=== PATIENT | female | born 1975 | race Caucasian/White ===

== ENCOUNTER 2018-10-05 08:15 | Outpatient (RCR) | payer OTHER, SELFPAY ==
--- NOTE | 2018-10-05 09:14 | PT.OTN ---
Current Diagnoses Pain in left shoulder (10/05/18) Physical Therapy Treatment Note PT-OP-A Visit Information Start: 09/01/18 12:16 Freq: Status: Active Protocol: Document 10/05/18 09:02 EA (Rec: 10/05/18 09:12 EA [id number]) Out-Patient Physical Therapy Visit Information Visit Information Visit Type Treatment Note Visit Start Time 08:15 Visit Stop Time 09:03 Total Visit Minutes 48 Visit Number 2 PT-OP-B Current Condition Start: 09/01/18 12:16 Freq: Status: Active Protocol: Document 09/01/18 17:35 EA (Rec: 09/15/18 07:28 EA [id number]) Current Condition History of Current Condition Onset Date a year ago Current Complaints Left shoulder pain with overhead movement and extreme shoulder rotation History of Current Condition Pt reports gradual onset of left shoulder pain with unrecalled potential injury. She reports she does different Yoga positioning exercises but she noticed last month was difficult to perform certain position due to pain. 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 She reports that it has been a year since initially encountered the pain; states last months the pain at night made her unable to sleep. She denies diagnostic imaging in the past. Prior Treatments and Tests None reported Future Testing and Treatments Planned None reported Treatment Goals Patient/Caregiver Goals Patient would like to eliminate pain. Patient would like to learn exercises that could prevent disease progression. Prior Functional Status Baseline Function- ADL's Independent Baseline Function- Mobility Independent Baseline Function- Recreation/Hobbies None limitation to Hiking, Yoga exercises Current Functional Impairments (Reported) Functional Limitations- ADL's Independent with limitation to overhead activities. 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 She requested to be discharged today and would liketo cont. HEP and pain management due to high co-pay Patient Reported Progress Improving Patient Questionnaires Quick Dash- Work and Sports Modules Quick Dash W&S Score 9 Quick Dash Work and Sport Impairment 1 to 19% Impaired (Score 1-19) PT-OP-F Manual Assessment Start: 09/01/18 12:16 Freq: Status: Active Protocol: Document 09/01/18 17:35 EA (Rec: 09/15/18 07:28 EA [id number]) Manual Assessments Soft Tissue Assessment Soft Tissue Mobility Assessment Tight left shoulder external rotation Joint Mobility Assessment Joint Mobility Assessment Normal joint mobility to GH PT-OP-J Posture/Palpation/Skin Start: 09/01/18 12:16 Freq: Status: Active Protocol: Document 09/01/18 17:35 EA (Rec: 09/15/18 07:28 EA [id number]) Posture Evaluation Comments Posture Comments Slight forward head with rounded shoulders Palpation Assessment Location One Palpation Location Anterior left shoulder Palpation Findings Tenderness PT-OP-K Range of Motion Start: 09/01/18 12:16 Freq: Status: Active Protocol: Document 09/01/18 17:35 EA (Rec: 09/15/18 07:24 EA [id number]) Shoulder Goniometric Range of Motion Shoulder Right Active Shoulder ROM WFL Yes Testing Position Sitting Left Active Testing Position Sitting Flexion 180 Extension 65 Abduction 180 External Rotation at 90 degrees 80 Abduction Internal Rotation 50 Shoulder ROM Limitations Shoulder ROM Limitations Pain PT-OP-L Special Tests Start: 09/01/18 12:16 Freq: Status: Active Protocol: Document 09/01/18 17:30 EA (Rec: 09/02/18 07:19 EA [id number]) Special Tests Shoulder Special Tests Rolanrelizabetson's Biceps Test Results - Empty Can Test Results Sensitive Elevation Impingement Test Results + Lift-Off Rotator Cuff Test Results + Mart Tejas Impingement Test Results + PT-OP-M Strength Start: 09/01/18 12:16 Freq: Status: Active Protocol: Document 09/01/18 17:30 EA (Rec: 09/02/18 07:21 EA [id number]) Shoulder Strength Shoulder Manual Muscle Testing Right Flexion 5 Normal Extension 5 Normal Abduction (C5) 5 Normal Adduction 5 Normal External Rotation 5 Normal Internal Rotation 5 Normal Horizontal Abduction 5 Normal Horizontal Adduction 5 Normal Left Flexion 4+ Good+ Extension 5 Normal Abduction (C5) 4+ Good+ Adduction 5 Normal External Rotation 4 Good Internal Rotation 4- Good- Horizontal Abduction 4 Good Horizontal Adduction 4 Good Comments Pain to shoulder IR PT-OP-Q Treatments Start: 09/01/18 12:16 Freq: Status: Active Protocol: Document 10/05/18 09:02 EA (Rec: 10/05/18 09:12 EA [id number]) Manual Therapy Treatment Soft Tissue Mobilization 1 Body Location TM and LD insertional tendon Mobilization Type Cross-Friction Myofascial Release Rolling Intensity/Depth Moderate Body Position Sidelying Self-Care/Home Management Treatment Education Patient Education Home Exercise Program Joint Protection Pain Management Other Education Educated with prevention, strengthening, and new HEP. Patient understand all HEP and pain management to perform at home. PT-OP-R Modalities Start: 09/01/18 12:16 Freq: Status: Active Protocol: Document 10/05/18 09:02 EA (Rec: 10/05/18 09:12 EA [id number]) Electric Stimulation Electric Stimulation Interferential Current (IFC) Body Location left posterior shoulder Intensity 12 Combined With Heat/Cold Cold Pack PT-OP-T Assessment and Plan Start: 09/01/18 12:16 Freq: Status: Active Protocol: Document 10/05/18 09:02 EA (Rec: 10/05/18 09:12 EA [id number]) Physical Therapy Assessment Assessment Summary Assessment Patient is discharge today upon request. Patient is improved from the time of initial visit. Physical Therapy Plan Discharge Physical Therapy Discharge Reasons Patient Request Discharge Comments high co-pay Next Visit Focus/Plan Next Note Type Discharge Summary
== END 2018-10-08 09:07 | disposition home or self-care (01) ==
LOC: PHYS 08:15
PROVIDERS: PCP Family Medicine; Visit Provider Family Medicine
DX: M25.512 Pain in left shoulder (principal)
CPT/HCPCS: 97014; 97110; 97140; 97161; 97535; G0283

== ENCOUNTER → 2018-10-05 09:20 | Outpatient (CLI) | payer OTHER, SELFPAY ==
[2018-10-05 10:42] LABS: Cholesterol 138 mg/dL (140-199); Glucose 82 mg/dL (70-100); HDL Cholesterol 62 mg/dL (40-60); LDL Cholesterol Calculated 68 mg/dL (<100); Triglycerides 38 mg/dL (35-150)
== END ==
PROVIDERS: PCP Family Medicine; Visit Provider Family Medicine
DX: Z13.220 Encounter for screening for lipoid disorders (principal); Z13.1 Encounter for screening for diabetes mellitus
CPT/HCPCS: 36415; 80061; 82947

== ENCOUNTER → 2019-03-01 15:41 | Outpatient (CLI) | payer OTHER, SELFPAY | PROVIDERS: PCP Family Medicine; Visit Provider Physician Assistant | DX: R30.0 Dysuria (principal) | CPT/HCPCS: 87086 ==

== ENCOUNTER → 2021-10-22 11:06 | Outpatient (CLI) | payer OTHER, SELFPAY ==
[2021-10-22 17:41] LABS: Campylobacter Not Detected (Not Detect); Clostridium difficile toxin AB Not Detected (Not Detect); Plesiomonsa shigelloides Not Detected (Not Detect); Salmonella Not Detected (Not Detect); Vibrio Not Detected (Not Detect); Vibrio cholerae Not Detected (Not Detect); Yersinia enterocolitica Not Detected (Not Detect)
[2021-10-22 17:42] LABS: Adenovirus F 40/41 Not Detected (Not Detect); Astrovirus Not Detected (Not Detect); Cryptosporidium Not Detected (Not Detect); Cyclospora cayetanensis Not Detected (Not Detect); Entamoeba histolytica Not Detected (Not Detect); Enteroaggregative E.coli Not Detected (Not Detect); Enteropathogenic E.coli Detected (Not Detect); Enterotoxigenic E.coli It/st Not Detected (Not Detect); Giardia lamblia Not Detected (Not Detect); Norovirus GI/GII Not Detected (Not Detect); Rotavirus A Not Detected (Not Detect); Sapovirus Not Detected (Not Detect); Shiga-like toxin-prod E.coli Not Detected (Not Detect); Shigella/Enteroinvasive E.coli Not Detected (Not Detect)
== END ==
PROVIDERS: PCP Family Medicine; Referring Provider Family Medicine; Visit Provider Family Medicine
DX: R19.7 Diarrhea, unspecified (principal)
CPT/HCPCS: 87507

== ENCOUNTER → 2022-12-26 13:01 | Outpatient (CLI) | payer OTHER, SELFPAY ==
[2022-12-26 14:02] LABS: Add Manual Diff / Slide Review NO; Basophils Absolute Auto 0 /uL (0-100); Basophils Percent Auto 0.5 % (0-2); Eosinophils Absolute Auto 100 /uL (0-450); Eosinophils Percent Auto 2.1 % (2-4); Lymphocytes Absolute Auto 1500 /uL (1100-4500); Lymphocytes Percent Auto 23.7 % (25-40); Mean Corpuscular HGB Conc 34.1 % (30-36); Mean Corpuscular Hemoglobin 32.8 PG (26-34); Mean Corpuscular Volume 96.3 fL (80-100); Monocytes Absolute Auto 300 /uL (0-900); Monocytes Percent Auto 5.4 % (3-14); Neutrophils Absolute Auto 4300 /uL (1500-7000); Neutrophils Percent Auto 68.3 % (50-75); Platelet Count 223 X10^3/uL (150-400); Red Blood Cell Count 3.95 X10^6/uL (4.0-5.2); Red Cell Distribution Width 12.9 % (11.6-14.8); White Blood Cell Count 6.3 X10^3/uL (4.5-11.0)
[2022-12-26 14:18] LABS: Alanine Aminotransferase 12 IU/L (<35); Albumin 4.3 g/dL (3.5-5.0); Albumin Globulin Ratio 1.5 (1.0-2.8); Alkaline Phosphatase 37 U/L (38-126); Aspartate Aminotransferase 16 IU/L (14-36); Bilirubin Total 1.1 mg/dL (0.2-1.3); Blood Urea Nitrogen 13 mg/dL (7-17); Calcium 9.3 mg/dL (8.4-10.2); Carbon Dioxide 27 mmol/L (22-32); Chloride 101 mmol/L (98-107); Estimated Glomerular Filt Rate > 60 mL/min (>60); Globulin 2.8 g/dL (1.7-4.1); Glucose 86 mg/dL (70-100); HEMOLYSIS < 15 (0-50); Sodium 135 mmol/L (137-145); Total Protein 7.1 g/dL (6.3-8.2); Uric Acid 2.7 mg/dL (2.5-6.2)
[2022-12-26 14:22] LABS: High Sensitivity CRP - Cardiac < 0.3 mg/L (1.0-3.0); Rheumatoid Factor < 8.6 IU/mL (<12.0)
[2022-12-26 14:44] LABS: Erythrocyte Sedimentation Rate 3 MM/HR (0-20)
[2022-12-26 14:48] LABS: Thyroid Stimulating Hormone 1.53 uIU/mL (0.47-4.68)
[2022-12-27 17:28] LABS: SS A Ro Sjogrens Antibody < 0.2 AI (0.0-0.9); SS B La Sjogrens Antibody < 0.2 AI (0.0-0.9)
[2022-12-31 16:50] LABS: ANA Screen, IFA Negative (.)
== END ==
PROVIDERS: PCP Family Medicine; Referring Provider Ophthalmology; Visit Provider Ophthalmology
DX: H44.132 Sympathetic uveitis, left eye (principal)
CPT/HCPCS: 36415; 80053; 84443; 84550; 85025; 85651; 86038; 86140; 86235; 86430

== ENCOUNTER → 2023-03-03 15:50 | Outpatient (CLI) | payer OTHER, SELFPAY | PROVIDERS: PCP Family Medicine; Visit Provider Nurse Practitioner Family | DX: J02.9 Acute pharyngitis, unspecified (principal) | CPT/HCPCS: 87070 ==

== ENCOUNTER 2023-09-28 19:45 | Emergency (ER) | payer OTHER, SELFPAY ==
[2023-09-28 19:51] VITALS: BP 111/68; PULSE 62; RESP 16; TEMP 37.3; O2SAT 100; BMI 23.6
--- NOTE | 2023-09-28 19:58 | DI.RAD.S_ITS ---
PROCEDURE: XR HAND LT MIN 3V INDICATIONS: cut left pointer finger with sharp knife; through nail bed TECHNIQUE: 3 views of the hand(s) acquired. COMPARISON: None. FINDINGS: Bones: No fractures or dislocations. Carpal bones are normally aligned. No suspicious bony lesions. Soft tissues: No suspicious soft tissue calcifications. IMPRESSION: No acute bony abnormality. No radiopaque foreign bodies. Dictated by: Terry Roman M.D. on 09/28/2023 at 20:10 Approved by: Terry Roman M.D. on 09/28/2023 at 20:10
--- NOTE | 2023-09-28 22:56 | ED.GENADULT ---
HPI - General Adult General Chief complaint: Extremity Injury, Upper Stated complaint: Finger laceration Time Seen by Provider: 09/28/23 22:56 Source: patient and family Mode of arrival: Ambulatory History of Present Illness HPI narrative: 47-year-old woman with no significant history who was cutting vegetables for dinner tonight and sliced off the pad of her left index finger. Distal portion of the nail is involved with the nail bed is not. Bleeding has been controlled. She is up-to-date on tetanus. Related Data Home Medications Medication Instructions Recorded Confirmed levonorgestrel 21 mcg/24 hours (8 52,000 mcg intrauterine QDAY ##0 06/08/20 07/21/23 yrs) 52 mg intrauterine device (Mirena) hydroxyzine HCl 25 mg tablet 25 mg PO BEDTIME 12/25/22 07/21/23 sertraline 50 mg tablet mg PO Mild anxiety 07/21/23 07/21/23 Allergies Allergy/AdvReac Type Severity Reaction Status Date / Time ERYTHROMYCIN Allergy Mild HIVES Uncoded 07/21/23 08:29 Patient History Medical History (Updated 09/28/23 @ 23:19 by Bianca Grayson MD) Plantar warts (~2014) Acne (~1991) Chicken pox (~1981) Human papilloma virus (~2006) Genital warts (~2006) Abnormal Pap smear of cervix (~2006) Family History (Updated 02/03/19 @ 19:49 by Kamilla Haney) Father Age: 76 Hyperlipidemia Cancer Grandmother Cancer Grandfather Cancer Mother Pulmonary embolism Social History marital status: unmarried,living together number of children: 0 lives independently: Yes caregiver/support person: No housing: house education level: college occupational status: employed Smoking Status: Former smoker second hand exposure: No alcohol intake: current substance use type: does not use Smoking Status: Former smoker alcohol intake frequency: 0-2 drinks per day Substance Use Type: does not use Exam Initial Vital Signs Initial Vital Signs: Vital Signs Temperature 99.2 F 09/28/23 19:51 Pulse Rate 62 09/28/23 19:51 Respiratory Rate 16 09/28/23 19:51 Blood Pressure 111/68 09/28/23 19:51 Pulse Oximetry 100 09/28/23 19:51 Oxygen Delivery Method Room Air 09/28/23 19:51 General: Alert appropriate in no acute distress Respiratory: Able to speak in full sentences, no obvious respiratory distress Skin: No obvious rashes, warm and dry Neurologic: Grossly intact no obvious asymmetries or abnormalities Psych: appropriate insight and affect, cooperative Extremity: The lateral pad of her left index finger has a large flap like laceration from a kitchen knife. The flap over the area that is sutured for hemostasis Course Orders Ordered: ED Orders 09/28/23 19:58 XR hand LT min 3V Stat Vital Signs Vital signs: Vital Signs - 8 hr 09/28/23 19:51 Temperature 99.2 F Pulse Rate 62 Respiratory Rate 16 Blood Pressure 111/68 Pulse Oximetry 100 Oxygen Delivery Method Room Air Medical Decision Making MDM Narrative Medical decision making narrative: CC: Left index finger laceration Data collected from: patient Differential considered: Superficial laceration, bony involvement, nail bed involvement Exam documented above, pertinent findings include: Flap like laceration involving the pad of the finger distal portion of the nail, nail bed is uninvolved. No bony involvement X-ray of the finger does not show any bony involvement Procedure/Treatments: Laceration repair 2 cc of lidocaine without epi is injected into the tip of the finger. There is cleaned with saline. Wound is explored through to the base. The wound itself is fairly clean. The flap size is 1 cm in diameter. Two interrupted sutures were placed, 4. 0 nylon suture used Patient tolerated the procedure well. Bacitracin and bandage applied Discussion: Flap like laceration to the tip of the left index finger. Two sutures placed patient tolerated well. She is up-to-date on tetanus. Reviewed signs and symptoms of infections reasons to return. Recommended sutures are out on or about October 04. She is safe for Discharge Plan Departure Patient Disposition: Home Clinical Impression: Finger laceration Qualifiers: Encounter type: initial encounter Finger: index finger Damage to nail status: without damage Foreign body presence: without foreign body Laterality: left Qualified Code(s): S61.211A - Laceration without foreign body of left index finger without damage to nail, initial encounter Instructions: DI for Laceration Repair -- Finger Activity Restrictions/Additional Instructions: Thank you for coming in today I think this wound will heal much better with sutures. Two single stitches were placed without complication. These will need to be removed on or about October 04. Keep the wound covered, bacitracin to the wound for the 1st couple of days and then a dry Band-Aid we will be adequate after that. If you notice increasing redness drainage or pain please return to the ER Prescriptions: No Action Mirena 20 mcg/24 hours (6 yrs) 52 mg intrauterine device 52,000 mcg intrauterine QDAY Qty: 0 Rx Instructions: Due out July 2021 hydroxyzine HCl 25 mg tablet 25 mg PO BEDTIME sertraline 50 mg tablet PO Patient Comments: online company prescribed it: [employer] Referrals: Deborah Roberts MD [Primary Care Provider] - Stand Alone Forms: Patient Portal/API
[2023-09-28] MEDS: BACITRACIN OINT 0.9 GM PCKT 1 APPLIC TOP (23:08)
== END 2023-09-28 23:30 | disposition home or self-care (01) ==
PROVIDERS: Emergency Provider Emergency Medicine; PCP Student in an Organized Health Care Education/Training Program
DX: S61.211A Laceration without foreign body of left index finger without damage to nail, initial encounter (principal); W26.0XXA Contact with knife, initial encounter
CPT/HCPCS: 12001; 73130; 99283

== ENCOUNTER → 2023-10-09 07:47 | Outpatient (CLI) | payer OTHER, SELFPAY ==
--- NOTE | 2023-10-09 07:48 | DI.MG.S_ITS ---
BILATERAL DIGITAL SCREENING MAMMOGRAM 3D/2D WITH CAD: 10/09/2023 CLINICAL: Routine screening. Baseline exam. No prior exams were available for comparison. Both breasts are heterogeneously dense, which may obscure small masses (category c / 51-75% glandular tissue). Current study was also evaluated with a Computer Aided Detection (CAD) system. There are grouped fine punctate calcifications in the left breast at 4 o'clock middle depth. No other significant masses, calcifications, or other findings are seen in either breast. IMPRESSION: INCOMPLETE: NEEDS ADDITIONAL IMAGING EVALUATION The grouped fine punctate calcifications in the left breast are indeterminate. Additional views with possible ultrasound are recommended. Based on the Tyrer Cuzick model (a risk assessment model) the patient's lifetime risk is 13.6% and her 10 year risk is 2.8%. According to the ACR, ACS, and NCCN guidelines, an annual breast MRI exam along with mammogram is recommended if the patient's lifetime risk is 20% or greater. This exam was interpreted at Station ID: [id number]. NOTE: For mammograms, a report in lay terms will be sent to the patient. Approximately 15% of breast malignancies will not be visualized mammographically. In the management of a palpable breast mass, a negative mammogram must not discourage biopsy of a clinically suspicious lesion. Electronically Signed By: Maria Isabel valdez/geraldnie:10/09/2023 10:23:44 letter sent: Additional Imaging Needed ACR BI-RADS Category 0: Incomplete 3340F
== END ==
PROVIDERS: PCP Student in an Organized Health Care Education/Training Program; Referring Provider Student in an Organized Health Care Education/Training Program; Visit Provider Student in an Organized Health Care Education/Training Program
DX: Z12.31 Encounter for screening mammogram for malignant neoplasm of breast (principal); R92.333 Mammographic heterogeneous density, bilateral breasts; R92.1 Mammographic calcification found on diagnostic imaging of breast
CPT/HCPCS: 77063; 77067

== ENCOUNTER → 2023-11-13 09:31 | Outpatient (CLI) | payer OTHER, SELFPAY ==
--- NOTE | 2023-11-13 09:32 | DI.MG.S_ITS ---
UNILATERAL LEFT DIGITAL DIAGNOSTIC MAMMOGRAM 3D/2D WITH ADDITIONAL VIEWS: 11/13/2023 CLINICAL: Additional evaluation requested from prior study. Comparison is made to exam dated: 10/09/2023 mammogram - [facility]. The breasts are heterogeneously dense, which may obscure small masses (category c / 51-75% glandular tissue). There are grouped punctate round calcifications in the left breast at 4 o'clock middle depth. These are seen in additional views. No other significant masses or calcifications are seen in the breast. IMPRESSION: PROBABLY BENIGN The grouped punctate round calcifications in the left breast are probably benign. A follow-up left mammogram in 6 months is recommended to demonstrate stability. Findings and recommendations were conveyed to the patient during today's evaluation. Based on the Tyrer Cuzick model (a risk assessment model) the patient's lifetime risk is 13.8% and her 10 year risk is 3.0%. According to the ACR, ACS, and NCCN guidelines, an annual breast MRI exam along with mammogram is recommended if the patient's lifetime risk is 20% or greater. This exam was interpreted at Station ID: [id number]. NOTE: For mammograms, a report in lay terms will be sent to the patient. Approximately 15% of breast malignancies will not be visualized mammographically. In the management of a palpable breast mass, a negative mammogram must not discourage biopsy of a clinically suspicious lesion. Electronically Signed By: Andrés Johnson M.D. aty/:11/13/2023 10:13:24 letter sent: Followup Recommended ACR BI-RADS Category 3: Probably Benign
== END ==
PROVIDERS: PCP Student in an Organized Health Care Education/Training Program; Referring Provider Student in an Organized Health Care Education/Training Program; Visit Provider Student in an Organized Health Care Education/Training Program
DX: R92.8 Other abnormal and inconclusive findings on diagnostic imaging of breast (principal); R92.1 Mammographic calcification found on diagnostic imaging of breast
CPT/HCPCS: 77065; G0279

== ENCOUNTER → 2023-11-20 07:05 | Outpatient (CLI) | payer OTHER, SELFPAY ==
[2023-11-20 08:00] LABS: Add Manual Diff / Slide Review NO; Basophils Absolute Auto 0 /uL (0-100); Basophils Percent Auto 0.4 % (0-2); Eosinophils Absolute Auto 200 /uL (0-450); Eosinophils Percent Auto 3.5 % (2-4); Hematocrit 38.2 % (36-46); Hemoglobin 13.1 g/dL (12.0-16.0); Lymphocytes Absolute Auto 700 /uL (1100-4500); Lymphocytes Percent Auto 11.8 % (25-40); Mean Corpuscular HGB Conc 34.3 % (30-36); Mean Corpuscular Hemoglobin 33.1 PG (26-34); Mean Corpuscular Volume 96.5 fL (80-100); Monocytes Absolute Auto 400 /uL (0-900); Monocytes Percent Auto 6.3 % (3-14); Neutrophils Absolute Auto 4900 /uL (1500-7000); Platelet Count 215 X10^3/uL (150-400); Red Blood Cell Count 3.95 X10^6/uL (4.0-5.2); Red Cell Distribution Width 12.7 % (11.6-14.8); White Blood Cell Count 6.3 X10^3/uL (4.5-11.0)
[2023-11-20 08:45] LABS: Alanine Aminotransferase 11 IU/L (<35); Albumin 3.9 g/dL (3.5-5.0); Albumin Globulin Ratio 1.5 (1.0-2.8); Alkaline Phosphatase 35 U/L (38-126); Aspartate Aminotransferase 24 IU/L (14-36); BUN Creatinine Ratio 22.1 (6-22); Bilirubin Total 1.5 mg/dL (0.2-1.3); Blood Urea Nitrogen 15 mg/dL (7-17); Calcium 9.1 mg/dL (8.4-10.2); Carbon Dioxide 26 mmol/L (22-32); Chloride 103 mmol/L (98-107); Cholesterol 148 mg/dL (140-199); Estimated Glomerular Filt Rate > 60 mL/min (>60); Globulin 2.6 g/dL (1.7-4.1); Glucose 81 mg/dL (70-100); HDL Cholesterol 66 mg/dL (40-60); HEMOLYSIS < 15 (0-50); LDL Cholesterol Calculated 73 mg/dL (<100); Potassium 4.6 mmol/L (3.4-5.1); Sodium 133 mmol/L (137-145); Total Protein 6.5 g/dL (6.3-8.2); Triglycerides 45 mg/dL (35-150)
== END ==
PROVIDERS: PCP Student in an Organized Health Care Education/Training Program; Referring Provider Student in an Organized Health Care Education/Training Program; Visit Provider Student in an Organized Health Care Education/Training Program
DX: Z13.228 Encounter for screening for other metabolic disorders (principal); R53.83 Other fatigue; Z13.220 Encounter for screening for lipoid disorders
CPT/HCPCS: 36415; 80053; 80061; 85025

== ENCOUNTER 2023-12-31 12:00 | Day surgery (SDC) | payer OTHER, SELFPAY ==
[2023-12-31 12:21] VITALS: BP 118/77; PULSE 101; RESP 16; TEMP 36.4; O2SAT 98
--- NOTE | 2023-12-31 12:36 | P.HP_ITS ---
History of Present Illness History of Present Illness Date Patient Seen: 12/31/23 Time Patient Seen: 12:36 Chief complaint: Screening Colonoscopy Narrative: Cortez is a 48-year-old woman who is here for a colonoscopy, her first. Her grandmother had colon cancer at a young age. [facility] Medical History (Updated 12/31/23 @ 12:37 by King Fontana MD) Plantar warts (~2014) Acne (~1991) Chicken pox (~1981) Human papilloma virus (~2006) Genital warts (~2006) Abnormal Pap smear of cervix (~2006) Family History (Updated 02/03/19 @ 19:49 by Kamilla Haney) Father Age: 76 Hyperlipidemia Cancer Grandmother Cancer Grandfather Cancer Mother Pulmonary embolism Social History marital status: unmarried,living together number of children: 0 lives independently: Yes caregiver/support person: No housing: house education level: college occupational status: employed Smoking Status: Former smoker second hand exposure: No alcohol intake: current substance use type: does not use Meds Home Medications and Allergies Home Medications Medication Instructions Recorded Confirmed Type levonorgestrel 21 mcg/24 hr (up to 52,000 mcg intrauterine QDAY ##0 06/08/20 07/21/23 History 8 years) 52 mg intrauterine device (Mirena) hydroxyzine HCl 25 mg tablet 25 mg PO BEDTIME 12/25/22 12/31/23 History venlafaxine 37.5 mg 37.5 mg PO DAILY #30 caps 10/09/23 12/31/23 Rx capsule,extended release 24 hr peg 3350-electrolytes 236 240 ml PO Q10M #4,000 mL 11/19/23 Rx gram-22.74 gram-6.74 gram-5.86 gram solution (Golytely) Allergies Allergy/AdvReac Type Severity Reaction Status Date / Time ERYTHROMYCIN Allergy Mild HIVES Uncoded 12/31/23 12:19 Exam Vital Signs (past 8 hours): - 12/31/23 12:21 Temperature 97.6 F Pulse Rate 101 H Respiratory Rate 16 Blood Pressure 118/77 Pulse Oximetry 98 Oxygen Delivery Method Room Air Oxygen Delivery Method Room Air Const General: healthy appearing Assessment & Plan Assessment and plan (1) Colon cancer screening: Status: Acute Plan Colonoscopy Time-Based Coding :: [TOTAL MINUTES] spent with patient and on the chart (including review of chart, obtaining history, exam, reviewing outside data, placing orders, documenting exam and treatment plan, and counseling patient) on [DATE].
[2023-12-31 13:20] VITALS: BP 90/57; PULSE 82; RESP 14; TEMP 36.2; O2SAT 95
[2023-12-31 13:25] VITALS: BP 93/63; PULSE 109; RESP 14; O2SAT 97
--- NOTE | 2023-12-31 13:25 | PM.OP.COLON ---
Operative Date/Time/Diagnoses Date of procedure: 12/31/23 Time of procedure: 13:25 Pre-op diagnosis: Colon cancer screening Post-op diagnosis: same Procedure & Clinicians Study performed: Colonoscopy Same procedure as scheduled: Yes Surgeon: King Fontana Procedure Notes Procedure in detail: Surgeon: King Fontana MD Anesthesia: Dinorah Sparrow CRNA Procedure: The patient was brought to the endoscopy suite, placed in left lateral decubitus position. The patient was connected to monitoring devices. A time-out was performed. Sedation was administered. Once the patient was adequately sedated, a digital rectal exam was performed and was normal. The scope was then inserted and advanced to the cecum where the appendiceal orifice was identified and photographed. The scope was then slowly withdrawn over greater than 6 minutes. The mucosa was thoroughly inspected. No abnormalities were identified. The scope was retroflexed in the rectum. The scope was straightened and removed. The patient was awakened and brought to recovery. Scope withdrawal time: 8 minutes Sedation time: 19 minutes EBL: 0 Findings: Normal colon Post-procedure Recommendations: Colonoscopy in 10 years Disposition: PACU
[2023-12-31 13:30] VITALS: BP 107/72; PULSE 87; RESP 16; TEMP 36.3; O2SAT 97
[2023-12-31 13:37] VITALS: BP 106/72; PULSE 77; RESP 14; O2SAT 98
== END 2023-12-31 13:52 | disposition home or self-care (01) ==
PROVIDERS: PCP Student in an Organized Health Care Education/Training Program; Referring Provider Surgery; Visit Provider Surgery
PROC: 0DJD8ZZ Inspection of Lower Intestinal Tract, Via Natural or Artificial Opening Endoscopic (ICD-10-PCS; CPT 45378; principal; 2023-12-31 13:15)
DX: Z12.11 Encounter for screening for malignant neoplasm of colon (principal)
CPT/HCPCS: 45378; J2704

== ENCOUNTER → 2024-07-07 11:59 | Outpatient (CLI) | payer OTHER, SELFPAY ==
--- NOTE | 2024-07-07 11:59 | DI.MG.S_ITS ---
MM diagnostic mammo unilat LT: 07/07/2024. BI-RADS: 3 CLINICAL: 48-year old female for left diagnostic mammogram that is a follow-up to diagnostic, left, digital, tomosynthesis, additional views on 11/13/2023. [facility] lifetime risk of 10.9%. No personal or first-degree family history of breast cancer. PRIOR EXAMS 11/13/2023, 10/09/2023. MAMMOGRAPHY TECHNIQUE: 2D and 3D (tomosynthesis) digital mammographic views obtained, with additional images as needed for full coverage. Current study was also evaluated with a Computer Aided Detection (CAD) system. DENSITY Left: C. The breasts are heterogeneously dense, which may obscure small masses. MAMMOGRAPHY FINDINGS Left: Lower Outer at 3:30, Middle depth: There are probably-benign grouped punctate calcifications that are unchanged in size and appearance. IMPRESSION: Left (Calcification): Lower Outer at 3:30, Middle depth * Probably Benign. RECOMMENDATIONS Left: Lower Outer at 3:30, Middle depth * Six month followup with diagnostic mammography. COMMENTS: The patient will also be due for contralateral screening mammogram at time of follow up examination. Findings and recommendations were conveyed to the patient during today's evaluation. OVERALL ASSESSMENT CATEGORY BI-RADS-3: Probably Benign. ELECTRONICALLY SIGNED: Andrés Johnson M.D. on 07/07/2024 at 12:46:51 PM PT Interpreting Station ID: [id number]
== END ==
PROVIDERS: PCP Student in an Organized Health Care Education/Training Program; Referring Provider Student in an Organized Health Care Education/Training Program; Visit Provider Student in an Organized Health Care Education/Training Program
DX: R92.8 Other abnormal and inconclusive findings on diagnostic imaging of breast (principal); R92.1 Mammographic calcification found on diagnostic imaging of breast; R92.332 Mammographic heterogeneous density, left breast
CPT/HCPCS: 77065; G0279